=== PATIENT | male | born 1960 | race American Indian/Alaskan Native ===

== ENCOUNTER 2020-08-03 08:39 | Day surgery (SDC) | payer MEDICAID ==
[~2020-08-03 08:39] MED LIST: SODIUM CHLORIDE 0.9% 1000 ML 1,000 ML IV SCH
[2020-08-03] MEDS ORDERED: fentaNYL 100 MCG/2 ML INJ IV PRN (10:00)
--- NOTE | 2020-08-03 10:00 | Anesthesia Day of Surgery ---
Anesthesia Day of Surgery - Day of Surgery Patient Examined: Yes Patient H&P Reviewed: Yes Patient is NPO: Yes Beta Blockers: Yes (carvedilol today AM)
--- NOTE | 2020-08-03 10:00 | Anesthesia Consultation ---
Anesthesia Consult and Med Hx Date of service: 08/03/20 - Airway Anesthetic Teeth Evaluation: Good ROM Head & Neck: Adequate Mental/Hyoid Distance: Adequate Mallampati Class: Class III Intubation Access Assessment: Possibly Difficult - Pulmonary Exam CTA: Yes - Cardiac Exam Cardiac Exam: RRR - Pre-Operative Health Status ASA Pre-Surgery Classification: ASA3 Proposed Anesthetic Plan: General - Pulmonary Hx Smoking: No Hx Respiratory Symptoms: No - Cardiovascular System Hx Hypertension: Yes (took antihypertensives this morning) Hx Heart Attack/AMI: No Hx Percutaneous Transluminal Coronary Angioplasty (PTCA): No - Central Nervous System CVA: No - Gastrointestinal Hx Gastroesophageal Reflux Disease: No - Endocrine Hx End Stage Renal Disease: Yes (last HD 08/01/20) Hx Cirrhosis: Yes (2/2 EtOH; no associated complications ) Hx Insulin Dependent Diabetes: Yes Hx Thyroid Disease: No - Hematic Hx Anemia: Yes - Other Systems Hx Alcohol Use: Yes (sober x1yr) Hx Obesity: No - Additional Comments Anesthesia Medical History Comments: No hx anesthetic complications.
[2020-08-03 10:44] LABS: Hematocrit 29.4 % (35.5-45.6); Hemoglobin 9.9 gm/dl (11.8-15.2); Mean Corpuscular HGB Conc 34 % (32-34); Mean Corpuscular Volume 104 fl (84-94); Platelet Count 148 K/mm3 (140-440); Red Blood Count 2.83 M/mm3 (3.65-5.03)
[2020-08-03 10:52] LABS: Albumin 3.8 g/dL (3.9-5); Calcium 9.2 mg/dL (8.4-10.2)
[2020-08-03] MEDS ORDERED: ceFAZolin/STERILE WATER 2 GM/20 ML SYRINGE IV NR ×2 (11:00→12:00)
[2020-08-03 11:55] LABS: INR 1.04 (0.87-1.13)
[2020-08-03] MEDS ORDERED: HYDROmorphone 1 MG/1 ML INJ ONE (12:31)
[2020-08-03] MEDS ORDERED: ONDANSETRON 4 MG/2 ML INJ ONE (12:31)
[2020-08-03] MEDS ORDERED: propofoL 200 MG/20 ML VIAL IV ONE (12:31)
[2020-08-03] MEDS ORDERED: LIDOCAINE MPF (2%) 20 MG/1 ML VIAL 5 ML ONE (12:31)
[2020-08-03] MEDS ORDERED: SODIUM CHLORIDE 0.9% 500 ML 500 ML ONE (12:36)
[2020-08-03] MEDS ORDERED: THROMBIN (RECOMBINANT) 5,000 UNIT VIAL TP ONE (13:06)
[2020-08-03] MEDS ORDERED: GELATIN SPONGE SIZE 100 TP ONE (13:06)
[2020-08-03] MEDS ORDERED: HEPARIN 5,000 UNIT in SODIUM CHLORIDE 0.9% 500 ML 500 ML IR ONE (13:35)
[2020-08-03] MEDS ORDERED: SODIUM CHLORIDE 0.9% IRR 1,000 ML BOTTLE IR ONE (13:35)
[2020-08-03] MEDS ORDERED: PHENYLEPHRINE/NS 1,000 MCG/10 ML SYRINGE (OR USE) IV ONE (14:27)
[2020-08-03] MEDS ORDERED: oxyCODONE /ACETAMINOPHEN 5-325MG TAB PO PRN (14:38)
--- NOTE | 2020-08-03 14:38 | Post Operative Note ---
Date of procedure: 08/03/20 Pre-op diagnosis: ESRD Post-op diagnosis: same Procedure: Left Arm AV Graft Insertion Anesthesia: GETA Surgeon: ANNA KERN Estimated blood loss: other (25ml) Pathology: none Condition: stable Disposition: PACU
--- NOTE | 2020-08-03 14:40 | Short Stay Summary ---
Short Stay Documentation Date of service: 08/03/20 - History H&P: obtained from office Past Medical History: ESRD, hypertension - Allergies and Medications Current Medications: Allergies No Known Allergies Allergy (Unverified 07/31/20 14:06) Home Medications Medication Instructions Recorded Confirmed Last Taken Type Calcium Acetate 667 mg PO DAILY 08/03/20 08/03/20 08/01/20 07:00 History Fluticasone 50 mcg PO DAILY 08/03/20 08/03/20 08/02/20 20:00 History Furosemide 80 mg PO DAILY 08/03/20 08/03/20 08/01/20 07:00 History Humulin N 0 units SUB-Q HS 08/03/20 08/03/20 08/02/20 20:30 History Latanoprost 0.005% 0.005 mg INTRAOCULA 08/03/20 08/02/20 20:00 History Losartan 50 mg PO DAILY 08/03/20 08/03/20 08/03/20 06:00 History Sildenafil 100 mg PO DAILY 08/03/20 08/03/20 Unknown History allopurinoL 100 mg PO DAILY 08/03/20 08/03/20 07/31/20 09:00 History amLODIPine 10 mg PO DAILY 08/03/20 08/03/20 08/03/20 06:00 History carvediloL 6.25 mg PO DAILY 08/03/20 08/03/20 08/03/20 06:00 History cloNIDine 0.2 mg PO DAILY 08/03/20 08/03/20 08/03/20 06:00 History hydrALAZINE 100 mg PO DAILY 08/03/20 08/03/20 08/03/20 06:00 History traZODone 50 mg PO HS 08/03/20 08/03/20 08/02/20 20:00 History Active Medications Cefazolin Sodium (Ancef/Sterile Water 2 Gm/20 Ml) 2 gm IV PREOP NR Stop: 08/03/20 23:59 Cefazolin Sodium (Ancef/Sterile Water 2 Gm/20 Ml) 2 gm IV PREOP NR Stop: 08/03/20 23:00 Fentanyl (Sublimaze) 50 mcg IV Q5MIN PRN PRN Reason: Pain , Severe (7-10) Sodium Chloride (Nacl 0.9% 1000 Ml) 1,000 mls @ 42 mls/hr IV DIRECT JASON Stop: 08/03/20 23:59 Last Admin: 08/03/20 11:03 Dose: 42 mls/hr Documented by: - Physical exam General appearance: no acute distress HEENT: Atraumatic Lungs: Normal air movement Heart: Regular rate Extremities: no ischemia - Hospital course Hospital course: the patient was taken to the operating room and had a left arm av graft performed. please refer to the operative note concerning details of the procedure. the patient tolerated the procedure well and was discharged home in stable condition. - Disposition Condition at discharge: Stable Disposition: DC-01 TO HOME OR SELFCARE Short Stay Discharge Plan Follow up with: JAMES ROSENTHAL MD [Primary Care Provider] - 7 Days
--- NOTE | 2020-08-03 15:07 | Operative Report ---
STAFF SURGEON: Dr. Nishant Flor. PREOPERATIVE DIAGNOSIS: End-stage renal disease. POSTOPERATIVE DIAGNOSIS: End-stage renal disease. PROCEDURE PERFORMED: Left arm AV graft insertion. COMPLICATIONS: None. ESTIMATED BLOOD LOSS: 25 mL. ANESTHESIA: General. COMPLICATIONS: None. INDICATIONS FOR PROCEDURE: This is a 60-year-old gentleman with end-stage renal disease, on hemodialysis via right IJ PermCath, in need of upper extremity access. The patient had a preoperative vein mapping, did not show any suitable veins in the upper extremity, so therefore an AV graft insertion was recommended. The patient was explained the risks, benefits and alternatives of procedure, expressed understanding and wished to proceed. DESCRIPTION OF PROCEDURE: After appropriate consent was obtained, the patient was brought back to the operating room and placed on the operating table in supine position with left arm extended. The patient was given appropriate medication for general anesthesia, had LMA placed without difficulty. The left upper extremity was prepped and draped in usual sterile fashion with ChloraPrep. Appropriate preoperative antibiotics were administered and appropriate time-out performed indicating correct patient, procedure, and site of the procedure. I began the operation by making a longitudinal incision near the antecubital fossa. This was carried through subcutaneous tissue with a combination of blunt dissection and electrocautery. Dissection was continued through the bicipital aponeurosis, allowed to expose the brachial artery, which was found to be suitable for arterial inflow. We then mobilized it both proximally and distally for appropriate distance, then proceeded to make a transverse incision near the axilla. This was carried through the subcutaneous tissue with a combination of blunt dissection and electrocautery. Dissection was continued through the fascia overlying the axillary neurovascular bundle. Axillary vein was identified and found to be suitable for venous outflow and was mobilized for appropriate distance both proximally and distally. We then proceeded to create a subcutaneous tunnel between the 2 incision sites bringing through a 4-7 mm Propaten graft. The patient was given 5000 units of unfractionated heparin. After appropriate timeout had elapsed, the graft was appropriately spatulated. Vascular clamps were placed on the brachial artery, both proximally and distally. Longitudinal arteriotomy was made with an 11 blade and extended with Sims scissors, then end-to-side anastomosis was performed with a running 6-0 Prolene suture. Once complete, flow was established through the graft, had a nice pulsatile flow. The graft was then cut to an appropriate length and spatulated. Vascular clamps were placed on the axillary vein, both proximally and distally. Longitudinal venotomy was made with an 11 blade and extended with Sims scissors. An end-to-side anastomosis was performed with a running 5-0 Prolene suture. Once complete, flow was reestablished through the graft, had a nice palpable thrill. We then looked to obtain hemostasis along the suture lines, which was obtained with hemostatic agents. Once we were satisfied with hemostasis, we proceeded to close both wounds with deep subcutaneous layer with interrupted 3-0 PDS. Skin was approximated with néstor. Appropriate dressing was placed. The patient tolerated the procedure well, emerged from the general anesthesia, had LMA removed and was sent to recovery in stable condition. All the sponges, instrument and needle counts were correct at completion of the operation. JOB# [id number] MAXIMILIANO/COCO
--- NOTE | 2020-08-03 16:11 | Post Anesthesia Evaluation ---
- Post Anesthesia Evaluation Patient Participated: Yes Airway Patent: Yes Stable Respiratory Function: Yes Nausea/Vomiting: No Temp > 96.8F: Yes Pain Manageable: Yes Adequeate Hydration: Yes Anesthesia Complications: No
[2020-08-03 17:53] VITALS: BP 162/72
== END 2020-08-03 08:40 | disposition home or self-care (01) ==
LOC: OR 08:39
PROVIDERS: ATTEND Surgery Vascular Surgery
DX: I12.0 Hypertensive chronic kidney disease with stage 5 chronic kidney disease or end stage renal disease (principal); E11.22 Type 2 diabetes mellitus with diabetic chronic kidney disease; N18.6 End stage renal disease; M19.90 Unspecified osteoarthritis, unspecified site; D64.9 Anemia, unspecified; Z79.899 Other long term (current) drug therapy; Z79.4 Long term (current) use of insulin; Z98.41 Cataract extraction status, right eye; Z98.42 Cataract extraction status, left eye; Z98.890 Other specified postprocedural states; Z72.89 Other problems related to lifestyle
CPT/HCPCS: 36415; 36830; 80053; 82962; 85027; 85610; A4649; C1768; J0690; J1170; J1644; J2370; J2405; J2704; J7030; J7040

== ENCOUNTER 2020-08-21 07:44 | Day surgery (SDC) | payer MEDICAID ==
[2020-08-21] MEDS ORDERED: SODIUM CHLORIDE 0.9% 1000 ML 1,000 ML IV SCH (09:00)
[2020-08-21] MEDS ORDERED: HYDROmorphone 1 MG/1 ML INJ IV PRN (09:06)
[2020-08-21] MEDS ORDERED: ONDANSETRON 4 MG/2 ML INJ IV PRN (09:06)
[2020-08-21] MEDS ORDERED: ceFAZolin/STERILE WATER 2 GM/20 ML SYRINGE IV NR (09:07)
--- NOTE | 2020-08-21 09:07 | Anesthesia Day of Surgery ---
Anesthesia Day of Surgery - Day of Surgery Patient Examined: Yes Patient H&P Reviewed: Yes Patient is NPO: Yes Beta Blockers: Yes
--- NOTE | 2020-08-21 09:08 | Anesthesia Consultation ---
Anesthesia Consult and Med Hx Date of service: 08/21/20 - Airway Anesthetic Teeth Evaluation: Chipped ROM Head & Neck: Adequate Mental/Hyoid Distance: Adequate Mallampati Class: Class II Intubation Access Assessment: Good - Pre-Operative Health Status ASA Pre-Surgery Classification: ASA3 Proposed Anesthetic Plan: General - Pulmonary Hx Respiratory Symptoms: No (+2FS) - Cardiovascular System Hx Hypertension: Yes - Central Nervous System Hx Psychiatric Problems: No - Gastrointestinal Hx Gastroesophageal Reflux Disease: No - Endocrine Hx Renal Disease: Yes Hx End Stage Renal Disease: Yes (Last HD yesterday) Hx Cirrhosis: Yes (R/T to ETOH, stopped drinking over a yr ago ; no associated complications ) Hx Insulin Dependent Diabetes: Yes Hx Thyroid Disease: No - Hematic Hx Anemia: Yes - Other Systems Hx Cancer: No
[2020-08-21 09:13] LABS: Hematocrit 34.3 % (35.5-45.6); Hemoglobin 11.4 gm/dl (11.8-15.2); Mean Corpuscular HGB Conc 33 % (32-34); Mean Corpuscular Volume 104 fl (84-94); Platelet Count 139 K/mm3 (140-440); Red Cell Distribution Width 15.3 % (13.2-15.2)
[2020-08-21] MEDS ORDERED: HEPARIN 10,000 UNITS/10 ML VIAL ONE (09:20)
[2020-08-21] MEDS ORDERED: PROTAMINE SULFATE 50 MG/5 ML INJ ONE (09:21)
[2020-08-21] MEDS ORDERED: LIDOCAINE (1%) 10 MG/1 ML VIAL 20 ML MDV ONE (09:23)
[2020-08-21] MEDS ORDERED: THROMBIN (RECOMBINANT) 5,000 UNIT VIAL TP ONE ×2 (09:26→12:20)
[2020-08-21] MEDS ORDERED: SODIUM CHLORIDE 0.9% 250ML 250 ML ONE ×2 (09:27)
[2020-08-21] MEDS ORDERED: GELATIN SPONGE SIZE 100 TP ONE ×2 (10:48→12:19)
[2020-08-21] MEDS ORDERED: fentaNYL 100 MCG/2 ML INJ ONE ×3 (10:51→11:36)
[2020-08-21] MEDS ORDERED: PHENYLEPHRINE/NS 1,000 MCG/10 ML SYRINGE (OR USE) IV ONE (10:51)
[2020-08-21] MEDS ORDERED: GLYCOPYRROLATE 0.4 MG/2 ML INJ ONE (10:51)
[2020-08-21] MEDS ORDERED: dexAMETHasone 20 MG/5 ML VIAL ONE (10:51)
[2020-08-21] MEDS ORDERED: ONDANSETRON 4 MG/2 ML INJ ONE (10:51)
[2020-08-21] MEDS ORDERED: LIDOCAINE MPF (2%) 20 MG/1 ML VIAL 5 ML ONE (10:51)
[2020-08-21] MEDS ORDERED: propofoL 200 MG/20 ML VIAL IV ONE (10:51)
[2020-08-21] MEDS ORDERED: SUCCINYLCHOLINE CHLORIDE 200 MG/10 ML INJ MDV ONE (11:43)
[2020-08-21] MEDS ORDERED: HEPARIN 10,000 UNITS/10 ML VIAL IV ONE (12:17)
[2020-08-21] MEDS ORDERED: SODIUM CHLORIDE 0.9% 250 ML IVPB IV ONE (12:18)
[2020-08-21] MEDS ORDERED: SODIUM CHLORIDE 0.9% IRR 1,500 ML BOTTLE IR ONE (12:20)
--- NOTE | 2020-08-21 13:33 | Post Operative Note ---
Date of procedure: 08/21/20 Pre-op diagnosis: ESRD Post-op diagnosis: same Procedure: 1. Left arm AV Graft Insertion 2. Left arm AV Graft Partial Excision Anesthesia: GETA Surgeon: ANNA KERN Estimated blood loss: other (25ml) Pathology: none Condition: stable Disposition: PACU
--- NOTE | 2020-08-21 13:36 | Short Stay Summary ---
Short Stay Documentation Date of service: 08/21/20 - History H&P: obtained from office Past Medical History: ESRD, hypertension - Allergies and Medications Current Medications: Allergies No Known Allergies Allergy (Unverified 08/19/20 11:08) Home Medications Medication Instructions Recorded Confirmed Last Taken Type Calcium Acetate 667 mg PO TID 08/03/20 08/21/20 08/20/20 12:00 History Fluticasone 50 mcg PO DAILY 08/03/20 08/21/20 08/14/20 06:00 History Furosemide 80 mg PO DAILY 08/03/20 08/21/20 08/19/20 06:00 History Humulin N 8 units SUB-Q TID 08/03/20 08/21/20 08/20/20 17:00 History Latanoprost 0.005% 0.005 mg INTRAOCULA HS 08/03/20 08/21/20 08/20/20 20:00 History Losartan 50 mg PO DAILY 08/03/20 08/21/20 08/20/20 06:00 History Sildenafil 100 mg PO DAILY 08/03/20 08/21/20 08/20/20 06:00 History allopurinoL 100 mg PO 3XW 08/03/20 08/21/20 08/19/20 06:00 History amLODIPine 10 mg PO DAILY 08/03/20 08/21/20 08/20/20 06:00 History carvediloL 6.25 mg PO QDAY 08/03/20 08/21/20 08/20/20 06:00 History cloNIDine 0.2 mg PO DAILY 08/03/20 08/21/20 08/20/20 06:00 History hydrALAZINE 100 mg PO DAILY 08/03/20 08/21/20 08/20/20 06:00 History Active Medications Cefazolin Sodium (Ancef/Sterile Water 2 Gm/20 Ml) 2 gm IV PREOP NR Stop: 08/21/20 20:00 Hydromorphone HCl (Dilaudid) 0.25 mg IV Q10MIN PRN PRN Reason: Pain, Moderate (4-6) Stop: 08/21/20 23:00 Hydromorphone HCl (Dilaudid) 0.5 mg IV Q10MIN PRN PRN Reason: Pain , Severe (7-10) Stop: 08/21/20 23:00 Sodium Chloride (Nacl 0.9% 1000 Ml) 1,000 mls @ 42 mls/hr IV DIRECT JASON Last Admin: 08/21/20 10:43 Dose: 42 mls/hr Documented by: Ondansetron HCl (Zofran) 4 mg IV ONCE PRN PRN Reason: Nausea And Vomiting Stop: 08/21/20 16:00 Oxycodone/Acetaminophen (Percocet 5/325) 2 tab PO Q4H PRN PRN Reason: Pain, Moderate (4-6) - Physical exam General appearance: no acute distress Lungs: Normal air movement Heart: Regular rate Extremities: no ischemia - Hospital course Hospital course: the patient was taken to the operating room and had a left arm av graft insertion performed. please refer to the operative note concerning details of the procedure. the patient tolerated the procedure well and was discharged home in stable condition. - Disposition Condition at discharge: Stable Disposition: DC-01 TO HOME OR SELFCARE Short Stay Discharge Plan Follow up with: JAMES ROSENTHAL MD [Primary Care Provider] - 7 Days
[2020-08-21] MEDS: HYDROmorphone 1 MG/1 ML INJ IV PRN ×4 (13:48→14:30)
[2020-08-21] MEDS ORDERED: oxyCODONE /ACETAMINOPHEN 5-325MG TAB PO PRN (14:00)
--- NOTE | 2020-08-21 14:06 | Post Anesthesia Evaluation ---
- Post Anesthesia Evaluation Patient Participated: Yes Airway Patent: Yes Stable Respiratory Function: Yes Nausea/Vomiting: No Temp > 96.8F: Yes Pain Manageable: Yes Adequeate Hydration: Yes Anesthesia Complications: No Block Receding Appropriately: Not Applicable Patient on Ventilator: No
[2020-08-21] MEDS ORDERED: hydrALAZINE 20 MG/1 ML INJ IV ONE (14:07)
[2020-08-21 14:53] VITALS: BP 161/67
[2020-08-21] MEDS ORDERED: oxyCODONE /ACETAMINOPHEN 5-325MG TAB PO NR (14:55)
--- NOTE | 2020-08-21 17:16 | Operative Report ---
STAFF SURGEON: Dr. Nisahnt Flor. PREOPERATIVE DIAGNOSIS: End-stage renal disease. POSTOPERATIVE DIAGNOSIS: End-stage renal disease. PROCEDURE PERFORMED: 1. Left arm AV graft insertion. 2. Left arm AV graft, partial excision. COMPLICATIONS: None. ESTIMATED BLOOD LOSS: 25 mL. ANESTHESIA: General. INDICATIONS FOR PROCEDURE: This is a 60-year-old gentleman with end-stage renal disease, on hemodialysis via PermCath in need of upper extremity access. The patient recently underwent AV graft insertion in his left arm that thrombosed shortly after the insertion. Therefore, the patient is being brought back to the operating room to obtain a subsequent access. The patient was explained the risks, benefits, and alternatives of procedure; expressed understanding; and wished to proceed. DESCRIPTION OF PROCEDURE: After appropriate consent was obtained, the patient was brought back to the operating room and placed on the operating table in supine position with left arm extended. The patient was given appropriate medication for general anesthesia. The left arm was prepped and draped in the usual sterile fashion with ChloraPrep. Appropriate preoperative antibiotics were administered and appropriate time-out performed indicating correct patient, procedure, and site of the procedure. I then began the operation by making a longitudinal incision in the axilla. This was carried through subcutaneous tissue with a combination of blunt dissection and electrocautery. Dissection was continued through the scar of the previous operation. The axillary vein was identified and found to be widely patent. This was mobilized both proximally and distally and then it was thought to be suitable for venous outflow. We then proceeded to make a longitudinal incision near the antecubital fossa, but proximal to the previous incision, this was carried through subcutaneous tissue with a combination of blunt dissection and electrocautery. Dissection was continued through the bicipital aponeurosis, allowed to expose the brachial artery. The brachial artery at this level was small, but thought to be suitable for arterial inflow, so this was mobilized for appropriate distance both proximally and distally. We then created a subcutaneous tunnel between the 2 incision sites and then brought through a 4-7 mm Propaten graft. The patient was then given 5000 units of unfractionated heparin. After appropriate time elapsed, the graft was appropriately spatulated. Vascular clamps were placed on the brachial artery, both proximally and distally. Longitudinal arteriotomy was made with an 11 blade and extended with Sims scissors. An end-to-side anastomosis was performed with a running 6-0 Prolene suture. Once complete, flow was established through the graft and had a nice pulsatile flow. Graft was then cut to appropriate length and spatulated. Vascular clamps were placed on the axillary vein, both proximally and distally. Longitudinal venotomy was made with a #11 blade and extended with Sims scissors. I then proceeded to perform the end-to-side anastomosis with a running 5-0 Prolene suture. Once complete, flow was established through the graft, which had a palpable thrill. We then looked to obtain hemostasis along the suture line, which was obtained with hemostatic agents. We then proceeded to make a longitudinal incision over the previous graft near the arterial anastomosis. The graft was dissected out and hemostat placed across the graft at this level and one near the venous anastomosis. The graft was transected on both ends and removed from the subcutaneous tunnel. The thrombosed graft was discarded. The two ends were then ligated with a 0-O silk suture. Once we were satisfied with hemostasis, then proceeded to close all wounds with deep subcutaneous layer with interrupted 3-0 PDS and the skin was approximated with néstor. Appropriate dressing was placed. The patient tolerated the procedure well, emerged from the general anesthesia, was extubated in the operating room, and sent to recovery in stable condition. All the sponges, instrument, and needle counts were correct at completion of the operation. JOB# [id number] MAXIMILIANO/COCO CURTIS
== END 2020-08-21 15:38 | disposition home or self-care (01) ==
LOC: OR 07:44
PROVIDERS: ATTEND Surgery Vascular Surgery
DX: I12.0 Hypertensive chronic kidney disease with stage 5 chronic kidney disease or end stage renal disease (principal); E11.22 Type 2 diabetes mellitus with diabetic chronic kidney disease; N18.6 End stage renal disease; T82.868A Thrombosis due to vascular prosthetic devices, implants and grafts, initial encounter; M19.90 Unspecified osteoarthritis, unspecified site; D64.9 Anemia, unspecified; Z98.42 Cataract extraction status, left eye; Z98.41 Cataract extraction status, right eye; Z98.890 Other specified postprocedural states; Z79.899 Other long term (current) drug therapy; Z79.4 Long term (current) use of insulin; Y83.8 Other surgical procedures as the cause of abnormal reaction of the patient, or of later complication, without mention of misadventure at the time of the procedure; Y92.89 Other specified places as the place of occurrence of the external cause
CPT/HCPCS: 36415; 36832; 80048; 82962; 85027; A4649; C1768; J0330; J0360; J0690; J1100; J1170; J1644; J2370; J2405; J2704; J3010; J7030; J7050; J2720

== ENCOUNTER 2020-09-21 05:59 | Day surgery (SDC) | payer MEDICAID ==
[2020-09-21] MEDS ORDERED: SODIUM CHLORIDE 0.9% 1000 ML 1,000 ML IV SCH (06:30)
[2020-09-21] MEDS ORDERED: BACTERIOSTATIC SODIUM CHLORIDE 0.9% 30 ML VIAL INFILTRATI ONE (06:51)
[2020-09-21] MEDS ORDERED: PROTAMINE SULFATE 50 MG/5 ML INJ ONE (07:05)
[2020-09-21] MEDS ORDERED: LIDOCAINE (1%) 10 MG/1 ML VIAL 20 ML MDV ONE (07:05)
[2020-09-21] MEDS ORDERED: HEPARIN 10,000 UNITS/10 ML VIAL ONE ×2 (07:05→10:51)
[2020-09-21] MEDS ORDERED: THROMBIN (RECOMBINANT) 5,000 UNIT VIAL TP ONE ×2 (07:06→09:22)
[2020-09-21] MEDS ORDERED: SODIUM CHLORIDE 0.9% 250ML 250 ML ONE (07:06)
[2020-09-21] MEDS ORDERED: GELATIN SPONGE SIZE 100 TP ONE (07:11)
--- NOTE | 2020-09-21 07:42 | Anesthesia Consultation ---
Anesthesia Consult and Med Hx Date of service: 09/21/20 - Airway Anesthetic Teeth Evaluation: Good ROM Head & Neck: Adequate Mental/Hyoid Distance: Adequate Mallampati Class: Class II Intubation Access Assessment: Good - Pulmonary Exam CTA: Yes - Cardiac Exam Cardiac Exam: RRR - Pre-Operative Health Status ASA Pre-Surgery Classification: ASA3 Proposed Anesthetic Plan: General - Pulmonary Hx Respiratory Symptoms: No (+2FS) - Cardiovascular System Hx Hypertension: Yes - Central Nervous System Hx Psychiatric Problems: No - Gastrointestinal Hx Gastroesophageal Reflux Disease: No - Endocrine Hx Renal Disease: Yes Hx End Stage Renal Disease: Yes Hx Cirrhosis: Yes (R/T to ETOH, stopped drinking over a yr ago ; no associated complications ) Hx Insulin Dependent Diabetes: Yes Hx Thyroid Disease: No - Hematic Hx Anemia: Yes - Other Systems Hx Cancer: Yes
--- NOTE | 2020-09-21 07:42 | Anesthesia Day of Surgery ---
Anesthesia Day of Surgery - Day of Surgery Patient Examined: Yes Patient H&P Reviewed: Yes Patient is NPO: Yes Beta Blockers: Yes
[2020-09-21 07:58] LABS: Hematocrit 41.7 % (35.5-45.6); Hemoglobin 13.5 gm/dl (11.8-15.2); Mean Corpuscular HGB Conc 32 % (32-34); Mean Corpuscular Volume 104 fl (84-94); Red Cell Distribution Width 15.5 % (13.2-15.2)
[2020-09-21 08:02] LABS: Platelet Count 99 K/mm3 (140-440)
[2020-09-21 08:10] LABS: Calcium 8.9 mg/dL (8.4-10.2)
[2020-09-21] MEDS ORDERED: propofoL 200 MG/20 ML VIAL IV ONE (08:26)
[2020-09-21] MEDS ORDERED: fentaNYL 100 MCG/2 ML INJ ONE (08:38)
[2020-09-21] MEDS ORDERED: KETAMINE/STERILE WATER 50 MG/ML SYRINGE ONE (09:02)
[2020-09-21] MEDS ORDERED: HEPARIN 10,000 UNITS/10 ML VIAL IR ONE (09:22)
[2020-09-21] MEDS ORDERED: SODIUM CHLORIDE 0.9% 250 ML IVPB IV ONE (09:26)
[2020-09-21] MEDS ORDERED: ONDANSETRON 4 MG/2 ML INJ ONE (10:52)
[2020-09-21] MEDS ORDERED: GLYCOPYRROLATE 0.4 MG/2 ML INJ ONE (11:00)
--- NOTE | 2020-09-21 11:03 | Post Operative Note ---
Date of procedure: 09/21/20 Pre-op diagnosis: ESRD Post-op diagnosis: same Procedure: 1. Left Arm Axillary Loop AV Graft Insertion Anesthesia: KATIE Surgeon: ANNA KERN Estimated blood loss: other (25ml) Pathology: none Condition: stable Disposition: PACU
--- NOTE | 2020-09-21 11:07 | Short Stay Summary ---
Short Stay Documentation Date of service: 09/21/20 - History H&P: obtained from office Past Medical History: hypertension - Allergies and Medications Current Medications: Allergies No Known Allergies Allergy (Unverified 09/18/20 16:52) Home Medications Medication Instructions Recorded Confirmed Last Taken Type Calcium Acetate 667 mg PO TID 08/03/20 09/18/20 08/20/20 12:00 History Fluticasone 50 mcg PO DAILY 08/03/20 09/18/20 08/14/20 06:00 History Furosemide 80 mg PO DAILY 08/03/20 09/18/20 08/19/20 06:00 History Humulin N 8 units SUB-Q TID 08/03/20 09/18/20 08/20/20 17:00 History Latanoprost 0.005% 0.005 mg INTRAOCULA HS 08/03/20 09/18/20 08/20/20 20:00 History Losartan 50 mg PO DAILY 08/03/20 09/18/20 08/20/20 06:00 History Sildenafil 100 mg PO DAILY 08/03/20 09/18/20 08/20/20 06:00 History allopurinoL 100 mg PO 3XW 08/03/20 09/18/20 08/19/20 06:00 History amLODIPine 10 mg PO DAILY 08/03/20 09/18/20 08/20/20 06:00 History carvediloL 6.25 mg PO QDAY 08/03/20 09/18/20 08/20/20 06:00 History cloNIDine 0.2 mg PO DAILY 08/03/20 09/18/20 08/20/20 06:00 History hydrALAZINE 100 mg PO DAILY 08/03/20 09/18/20 08/20/20 06:00 History oxyCODONE /ACETAMINOPHEN [Percocet 1 tab PO Q6HR PRN #24 tablet 08/21/20 09/18/20 Unknown Rx 5/325 mg] Active Medications Sodium Chloride (Nacl 0.9% 1000 Ml) 1,000 mls @ 42 mls/hr IV DIRECT JASON - Physical exam General appearance: no acute distress Lungs: Normal air movement Heart: Regular rate Extremities: no ischemia - Hospital course Hospital course: the patient was taken to the operating room and had a left arm axillary loop av graft performed. please refer to the operative note concerning details of the procedure. the patient tolerated the procedure well and was discharged home in stable condition. - Disposition Condition at discharge: Stable Disposition: DC-01 TO HOME OR SELFCARE Short Stay Discharge Plan Follow up with: JAMES ROSENTHAL MD [Primary Care Provider] - 7 Days
[2020-09-21] MEDS ORDERED: oxyCODONE /ACETAMINOPHEN 5-325MG TAB PO PRN (11:30)
[2020-09-21] MEDS ORDERED: HYDROmorphone 1 MG/1 ML INJ ONE (11:46)
[2020-09-21] MEDS ORDERED: HYDROmorphone 1 MG/1 ML INJ IV PRN (11:47)
[2020-09-21] MEDS ORDERED: ONDANSETRON 4 MG/2 ML INJ IV PRN (11:47)
[2020-09-21] MEDS: HYDROmorphone 1 MG/1 ML INJ IV PRN ×2 (11:47→12:00)
--- NOTE | 2020-09-21 11:48 | Operative Report ---
STAFF SURGEON: Nishant Flor MD PREOPERATIVE DIAGNOSIS: End-stage renal disease. POSTOPERATIVE DIAGNOSIS: End-stage renal disease. PROCEDURE PERFORMED: Left arm axillary loop AV graft insertion. COMPLICATIONS: None. ESTIMATED BLOOD LOSS: 25 mL. ANESTHESIA: General. INDICATIONS FOR PROCEDURE: This is a 60-year-old gentleman with end-stage renal disease, who has undergone an attempted AV graft insertion in the left arm, which have both failed likely due to insufficient arterial inflow. Therefore, the patient now returns for a subsequent attempt for access creation in the upper extremity with the inflow coming from the axillary artery. The patient was explained all the risks, benefits and alternatives of procedure, he expressed understanding and wished to proceed. DESCRIPTION OF PROCEDURE: After appropriate consent was obtained, the patient was brought back to the operating room and placed on the operating table in supine position with the left arm extended. The patient was given appropriate medication for general anesthesia. He had LMA placed without difficulty. The left arm was prepped and draped in the usual sterile fashion with ChloraPrep. Appropriate preoperative antibiotics were administered. Appropriate time-out performed indicating correct patient, procedure, and site of the procedure. We then began the operation by making a longitudinal incision in the axilla overlying the previous incision. This was carried through the subcutaneous tissue with a combination of blunt dissection and electrocautery. There was significant amount of scar tissue. The dissection was then continued down onto the axillary vein, which was identified and found to be patent. This was mobilized for an appropriate distance high into the axilla. We then continued our dissection medially to expose the axillary artery, which was mobilized for appropriate distance both proximally and distally and found to be a suitable vessel for arterial inflow. We then proceeded to make a counter incision in the mid upper arm and dissected out through the subcutaneous tissue with a combination of blunt dissection and electrocautery. We then proceeded to create a subcutaneous tunnel in a loop fashion bringing through a 4-7 mm Propaten graft with the arterial inflow on the fifth digit side. The patient was then given 5000 units of unfractionated heparin. After appropriate timeout elapsed, the graft was appropriately spatulated. Vascular clamps were placed on the axillary artery, both proximally and distally. A longitudinal arteriotomy was made with an 11 blade and extended with Sims scissors and then an end-to-side anastomosis was performed with a running 6-0 Prolene suture. Once complete, flow was established through the graft, had a nice pulsatile flow. We then cut the graft to an appropriate length and spatulated. Vascular clamps were then placed on the axillary vein, both proximally and distally. A longitudinal venotomy was performed with an 11 blade and extended with Sims scissors and then an end-to-side anastomosis was performed with a running 5-0 Prolene suture. Once complete, flow was established through the graft, had a nice palpable thrill. We then proceeded to obtain hemostasis along our suture line and wound bed, which was obtained with hemostatic agents. Once we were satisfied with hemostasis, we then proceeded to close both wounds with a deep subcutaneous layer with interrupted 3-0 PDS and the skin was approximated with néstor. Appropriate dressing was placed. The patient tolerated the procedure well, emerged from the general anesthesia, had LMA removed, and was sent to recovery in stable condition. All the sponges, instrument and needle counts were correct at completion of the operation. JOB# [id number] MAXIMILIANO/COCO
[2020-09-21 12:54] VITALS: BP 157/68
== END 2020-09-21 06:00 | disposition home or self-care (01) ==
LOC: OR 05:59
PROVIDERS: ATTEND Surgery Vascular Surgery
DX: I12.0 Hypertensive chronic kidney disease with stage 5 chronic kidney disease or end stage renal disease (principal); E11.22 Type 2 diabetes mellitus with diabetic chronic kidney disease; N18.6 End stage renal disease; M19.90 Unspecified osteoarthritis, unspecified site; Z79.899 Other long term (current) drug therapy; Z98.41 Cataract extraction status, right eye; Z98.42 Cataract extraction status, left eye; Z85.038 Personal history of other malignant neoplasm of large intestine; Z98.890 Other specified postprocedural states; Z86.2 Personal history of diseases of the blood and blood-forming organs and certain disorders involving the immune mechanism
CPT/HCPCS: 36415; 36830; 80048; 82962; 85027; A4649; C1768; J1170; J1644; J2405; J2704; J2720; J3010; J3490; J7030; J7050